=== PATIENT | female | born 1995 | race Caucasian/White ===

== ENCOUNTER → 2024-04-27 12:01 | Outpatient (CLI) | payer OTHER, SELFPAY | PROVIDERS: Referring Provider Chiropractor; Visit Provider Chiropractor | DX: R07.9 Chest pain, unspecified (principal); Z86.16 Personal history of COVID-19 | CPT/HCPCS: 94060 ==

== ENCOUNTER → 2024-04-27 | Outpatient (CLI) | payer OTHER, SELFPAY ==
--- NOTE | 2024-04-27 12:44 | DI.ECHO.S_ITS ---
[facility] : : [address] : : [place] : : [id number] : : Phone: [phone] Echocardiogram Report + + :Name: RITA Study Date: 04/27/2024 Height: 66 in : :Hospital ReadingLocation: Weight: 180 lb : : Gender: Female BSA: 1.9 m2 : :: 1995 Age: 28 yrs BP: 128/88 mmHg: :Reason For Study: Chest pain : :Ordering Physician: CHAVA, : :KELLY Performed By: Cathie Resendiz : :Referring: KELLY LARSEN : + + Interpretation Summary The left ventricle is normal in size and wall thickness. The ejection fraction is estimated to be 55-60%. Left ventricular wall motion is normal. Diastolic parameters suggest probable normal left ventricular diastolic function and normal filling pressures. Borderline right ventricular enlargement. The right ventricular systolic function is normal. The left atrial size is normal. There is no significant valvular heart disease. The aortic root is normal size. Procedure: A two-dimensional transthoracic echocardiogram with color flow and Doppler was performed. The study quality was technically adequate. There is no prior echocardiogram noted for this patient. The heart rate ranged between 67-68 bpm during the study. Left Ventricle: The left ventricle is normal in size and wall thickness. The ejection fraction is estimated to be 55-60%. Left ventricular wall motion is normal. Diastolic parameters suggest probable normal left ventricular diastolic function and normal filling pressures. Right Ventricle: Borderline right ventricular enlargement. The right ventricular systolic function is normal. Atria: The left atrial size is normal. Right atrial size is normal. The interatrial septum grossly appears intact with no obvious evidence for an atrial septal defect. Mitral Valve: The mitral valve is normal in structure and function. There is no mitral regurgitation noted. Aortic Valve: The aortic valve opens well. The aortic valve is grossly normal. No aortic regurgitation is present. Tricuspid Valve: The tricuspid valve leaflets are thin and pliable. No tricuspid regurgitation. Pulmonic Valve: The pulmonic valve is not well seen, but is grossly normal. There is no pulmonic valvular regurgitation. There is no significant valvular heart disease. Great Vessels: The aortic root is normal size. The ascending aorta is normal in size. The aortic arch is normal in size. The IVC is of normal diameter and collapses greater than 50% with a sniff. This suggests a low right atrial pressure of 3 mm Hg. Pericardium/ Pleura There is no pericardial effusion. There is no pleural effusion. MMode/2D Measurements & Calculations LVIDd: 4.7 cm LVOT diam: 2.1 cm LVIDs: 2.8 cm Ao root diam: 2.8 cm FS: 41.0 % asc Aorta Diam: 2.8 cm EPSS: 0.26 cm Ao Arch Diam (Prox Trans): 2.6 cm IVSd: 0.78 cm LVPWd: 0.73 cm LV ann. diameter/BSA (cm/m^2): 2.4 LV sys. diameter/BSA (cm/m^2): 1.4 LA A2 area: 18.1 cm2 RA long axis: 4.6 cm LA A4 area: 17.1 cm2 RA area: 13.2 cm2 LA length (vol): 4.8 cm RA vol: 32.2 ml LA vol: 54.3 ml RA : 16.9 ml/m2 LA vol index: 28.4 ml/m2 IVC diam: 2.0 cm RVD1 (basal): 3.6 cm TAPSE: 2.5 cm Doppler Measurements & Calculations Ao V2 max: 118.0 cm/sec LVOT Max Ronnie: 101.9 cm/sec Ao V2 mean: 86.0 cm/sec LV V1 max P.2 mmHg Ao max P.6 mmHg LV V1 VTI: 22.0 cm Ao mean P.3 mmHg JOI(I,D): 2.7 cm2 Ao V2 VTI: 28.7 cm JOI(V,D): 3.0 cm2 sev ratio: 0.77 JOI indexed to BSA (cm^2/m^2): 1.4 MV E max ronnie: 97.2 cm/sec PA V2 max: 77.4 cm/sec MV A max ronnie: 43.4 cm/sec PA V2 mean: 49.3 cm/sec MV E/A: 2.2 PA mean P.3 mmHg Med Peak E' Ronnie: 11.7 cm/sec PA pr(Accel): 19.1 mmHg E/E' med: 8.3 Lat Peak E' Ronnie: 15.3 cm/sec E/E' lat: 6.3 E/e' average: 7.3 MV dec time: 0.20 sec SV(LVOT): 76.6 ml Reading Physician:08:25 AM
== END ==
LOC: ECHO 12:04
PROVIDERS: Referring Provider Chiropractor; Visit Provider Chiropractor
DX: R07.9 Chest pain, unspecified (principal)
CPT/HCPCS: 93306